=== PATIENT | male | born 1980 | race African-American/Black ===

== ENCOUNTER 2025-03-29 23:58 | Emergency (ER) | payer OTHER ==
[~2025-03-29] VITALS: Ht 175.3 cm; Wt 72.7 kg
[2025-03-30] MEDS ORDERED: METH4TAB3 PO (01:54)
[2025-03-30] MEDS ORDERED: HYDR-4062 PO (01:54)
[2025-03-30] MEDS ORDERED: KETO10TA2 PO (01:54)
[2025-03-30] MEDS: DEXAMETHASONE SOD PHOS 4 MG/ML 5 ML VIAL IM ONE (02:13)
[2025-03-30] MEDS: KETOROLAC TROMETHAMINE 60 MG/2 ML VIAL IM ONE (02:14)
[2025-03-30 02:36] VITALS: BP 119/67; PULSE 78; RESP 16; TEMP 97.8; O2SAT 100
== END 2025-03-30 03:10 | disposition home or self-care (01) ==
LOC: EMS 03-30 00:01
DX: M54.32 Sciatica, left side (principal); M54.16 Radiculopathy, lumbar region; M48.00 Spinal stenosis, site unspecified; E11.9 Type 2 diabetes mellitus without complications; Z79.899 Other long term (current) drug therapy
CPT/HCPCS: 99284; 96372; J1885; J1100